=== PATIENT | female | born 1975 | race Caucasian/White ===

== ENCOUNTER 2018-05-19 03:10 | Emergency (ER) | payer MEDICAID, OTHER ==
[~2018-05-19] VITALS: Wt 75.7 kg
[~2018-05-19 03:10] MED LIST: methadone PO
[2018-05-19 03:12] VITALS: BP 148/81; PULSE 101; RESP 18
--- NOTE | 2018-05-19 06:30 | ERD ---
ER Documentation Chief Complaint Chief Complaint R ANKLE PAIN X'S 2 WEEKS HPI 42-year-old female previously healthy, presents to the emergency department, complaining of worsening of right ankle cellulitis for 2 weeks. The pain is sharp, constant, 6/10. She denies fevers, no chills, no shortness of breath, no chest pain. ROS All systems reviewed and are negative except as per history of present illness. Medications Home Meds Active Scripts Ibuprofen* (Motrin*) 400 Mg Tab, 400 MG PO Q8, #15 TAB Prov:DENICE VALERA MD 05/19/18 Sulfamethoxazole/Trimethoprim* (Bactrim Ds* Tablet) 1 Each Tablet, 1 TAB PO BID for 7 Days, #14 TAB Prov:DENICE VALERA MD 05/19/18 Cephalexin* (Keflex*) 500 Mg Capsule, 500 MG PO BID for 7 Days, CAP Prov:DENICE VALERA MD 05/19/18 Reported Medications [methadone] No Conflict Check, 40 MG PO DAILY 10/19/13 Allergies Allergies: Coded Allergies: No Known Allergy (Unverified , 10/19/13) PMhx/Soc History of Surgery: No Anesthesia Reaction: No Hx Neurological Disorder: No Hx Respiratory Disorders: No Hx Cardiac Disorders: No Hx Psychiatric Problems: No Hx Miscellaneous Medical Probl: No Hx Alcohol Use: No Hx Substance Use: Yes Hx Tobacco Use: Yes FmHx Family History: No diabetes, No coronary disease Physical Exam Vitals Vital Signs Date Temp Pulse Resp B/P (MAP) Pulse Ox O2 O2 Flow FiO2 Time Delivery Rate 05/19/18 98.0 101 18 148/81 97 03:12 (103) Physical Exam Const: No acute distress Head: Atraumatic Eyes: Normal Conjunctiva ENT: Normal External Ears, Nose and Mouth. Neck: Full range of motion. No meningismus. Resp: Clear to auscultation bilaterally Cardio: Regular rate and rhythm, no murmurs Abd: Soft, non tender, non distended. Normal bowel sounds Skin: No petechiae or rashes Back: No midline or flank tenderness Ext: Bilateral 2+ ankle edema, right ankle with a well demarcated area of erythema warmth and tenderness to palpation, no fluctuance. Neur: Awake and alert Psych: Normal Mood and Affect Procedures/MDM Vital signs stable, differential diagnosis include but not limited to: DVT, superficial thrombosis, cellulitis, erysipelas, shingles, abscess. Low suspicion for acute systemic infectious process. Physical examination and clinical presentation consistent most likely with cellulitis of the left foot without evidence of abscess formation. During the ED course the patient remained stable, no new complaints. Results and clinical impression discussed with the patient who agrees with management. The patient is stable to be treated outpatient and will be discharged home with a Rx for antibiotics, anti-inflammatories, some side effects of prescribed medications (headache, rash, nausea, vomiting, diarrhea, drowsiness, habituation, bleeding, hypertension, interactions with other medications) were reviewed. The patient was instructed to follow up with the primary care provider in the next 48h. If symptoms persist, worsen or new symptoms develop, then patient should return to the ED immediately. Instructions explained and given directly by me to the patient and relatives with acknowledgment and demonstrated understanding. Disclaimer: Inadvertent spelling and grammatical errors are likely due to EHR/dictation software use and do not reflect on the overall quality of patient care. Also, please note that the electronic time recorded on this note does not necessarily reflect the actual time of the patient encounter. Departure Diagnosis: Primary Impression: Cellulitis of foot, left Condition: Stable Additional Instructions: Thank you very much for allowing us to participate in your care. Your health and safety is our top priority at [facility]. Call your primary care doctor TOMORROW for an appointment during the next 2-4 days and bring all the information and medications prescribed. Have prescriptions filled and follow precisely the directions on the label. If the symptoms get worse and your provider is unavailable, return to the Emergency Department immediately. DENICE VALERA MD May 19, 2018 06:30
[2018-05-19] MEDS ORDERED: SULF1TAB31 PO (06:44)
[2018-05-19] MEDS ORDERED: IBUP-1561 PO (06:44)
[2018-05-19] MEDS ORDERED: CEPH-443 PO (06:44)
== END 2018-05-19 07:05 | disposition home or self-care (01) ==
LOC: FTE 03:10
DX: L03.115 Cellulitis of right lower limb (principal); Z87.891 Personal history of nicotine dependence
CPT/HCPCS: 99283

== ENCOUNTER 2018-08-31 05:42 | Observation (INO) | payer OTHER ==
[~2018-08-31] VITALS: Ht 172.7 cm; Wt 74.2 kg
[~2018-08-31 05:42] MED LIST changes: +CEPH-443 PO; +IBUP-1561 PO; +SULF1TAB31 PO
[2018-08-31] MEDS ORDERED: SOD CHLORIDE 0.9% 1,000 ML IV STA (07:41)
[2018-08-31] MEDS ORDERED: CLINDAMYCIN 900 MG/D5W (PMX) 50 ML IVPB SCH (08:00)
[2018-08-31] MEDS ORDERED: IBUPROFEN 600 MG TAB PO ONE (08:00)
--- NOTE | 2018-08-31 08:01 | ERD ---
ER Documentation Chief Complaint Chief Complaint right lower leg swelling/redness x 2 weeks, finished atb, wound with draina HPI This is a 43-year-old woman with continued redness, swelling to the right lower extremity and an ulcer and purulent discharge of the right lateral ankle. She was diagnosed with cellulitis of the foot and ankle over a month ago and was treated for about 3 days with IV antibiotics at [facility] for some reason she signed out AGAINST MEDICAL ADVICE but was placed on cephalexin times about 2 weeks. She states she used her antibiotics until complete, last dose of Keflex was 3 weeks ago Keflex her. Patient states since redness and swelling has increased in size and she has had worsening purulent discharge from the right lateral ankle. She has had tactile fevers and chills recently at home as well. She denies chest pain or shortness of breath, no URI symptoms, no abdominal pain, no vomiting or diarrhea, no headache or blurry vision ROS All systems reviewed and are negative except as per history of present illness. Medications Home Meds Active Scripts Ibuprofen* (Motrin*) 400 Mg Tab, 400 MG PO Q8, #15 TAB Prov:DENICE VALERA MD 05/19/18 Sulfamethoxazole/Trimethoprim* (Bactrim Ds* Tablet) 1 Each Tablet, 1 TAB PO BID for 7 Days, #14 TAB Prov:DENICE VALERA MD 05/19/18 Cephalexin* (Keflex*) 500 Mg Capsule, 500 MG PO BID for 7 Days, CAP Prov:DENICE VALERA MD 05/19/18 Reported Medications [methadone] No Conflict Check, 40 MG PO DAILY 10/19/13 Allergies Allergies: Coded Allergies: No Known Allergy (Unverified , 10/19/13) PMhx/Soc History of Surgery: No Anesthesia Reaction: No Hx Neurological Disorder: No Hx Respiratory Disorders: No Hx Cardiac Disorders: No Hx Psychiatric Problems: No Hx Miscellaneous Medical Probl: No Hx Alcohol Use: No Hx Substance Use: Yes (heroin) Hx Tobacco Use: Yes Smoking Status: Current every day smoker FmHx Family History: No diabetes Physical Exam Vitals Vital Signs Date Temp Pulse Resp B/P (MAP) Pulse Ox O2 O2 Flow FiO2 Time Delivery Rate 08/31/18 97.3 89 18 128/65 99 05:47 (86) Physical Exam Const: No acute distress, well-developed well-nourished, afebrile Resp: Clear to auscultation bilaterally Cardio: Regular rate and rhythm, no murmurs Abd: Soft, non tender, non distended. Skin: No petechiae or rashes. Large zone of skin induration and erythema over the right lower extremity mostly the foot ankle and lower leg with superficial draining ulcer to the right lateral ankle. Ext: No cyanosis, 1+ pitting edema to the right lower extremity and erythematous indurated skin over the entire right lower extremity with a superficial draining ulcer to the right lateral ankle Neur: Awake and alert x3, no focal deficits or facial asymmetry Psych: Normal Mood and Affect Results 24 hrs Current Medications Medications Dose Sig/Bret Start Time Status Last (Trade) Ordered Route PRN Stop Time Admin Dose Reason Admin Sodium 1,000 ml @ Q1H STAT 08/31/18 Chloride 1,000 mls/hr IV 07:41 08/31/18 08:40 Ibuprofen 600 mg ONCE ONCE 08/31/18 (Motrin) PO 08:00 08/31/18 08:01 Clindamycin 50 ml @ 50 ONCE IVPB 08/31/18 HCl/ mls/hr 08:00 Dextrose 08/31/18 08:59 Procedures/MDM IV line was established patient was placed on buhr dresser rhythm strip revealed a sinus rhythm at about 80 bpm with upright P and T waves. Patient was afebrile I administered 1 L normal saline IV, clindamycin 900 mg IV, ibuprofen 600 mg p.o. Right lower extremity Doppler ultrasound was negative for deep vein thrombosis. CBC and electrolytes are unremarkable, liver function tests were unremarkable. Patient failed outpatient oral antibiotics and will be admitted for IV antibiotic therapy Departure Diagnosis: Primary Impression: Cellulitis of right lower extremity Additional Impression: Ankle ulcer Laterality: right Non-pressure ulcer stage: unspecified non-pressure ulcer stage Qualified Codes: L97.319 - Non-pressure chronic ulcer of right ankle with unspecified severity Condition: LAYTON Hassan MD Aug 31, 2018 08:01
[2018-08-31] MEDS ORDERED: VANCOMYCIN IV PER PHARMACY XX SCH (10:00)
[2018-08-31] MEDS ORDERED: VANCOMYCIN HCL 1.25 GM in SOD CHLORIDE 0.9% 250 ML IVPB SCH (11:00)
[2018-08-31] MEDS: CEFTRIAXONE 1 GM/50 ML (PMX) 50 ML IVPB SCH (11:03)
--- NOTE | 2018-08-31 12:12 | HP ---
DATE OF ADMISSION: 08/31/2018 CHIEF COMPLAINT: Right leg calf swelling and redness. HISTORY OF PRESENT ILLNESS: A 43-year-old female with long history of IV drug abuse, skin popping, a nd "muffling", presented to emergency room with complaint of right leg swelling and redness. The pat courtney was at [facility] about 1 month prior to admission for similar complaints. At t hat time, she received IV antibiotics and signed out against medical advice. The patient reports fer t [place] treated the infection. However, patient continues to skin pop and inject needles into her r ight lower extremity. The last use was the night prior to admission. The patient has history of IV drug abuse for more than 15 years. She denies any fevers or chills. No abdominal pain, nausea or vo miting. No chest pain or shortness of breath. Initial evaluation revealed right lower extremity lesions on the lateral ankle and medial thigh with erythema extending all the way to the thigh area. White blood cell count was normal. The patient is also on methadone. PAST MEDICAL HISTORY: History of IV drug abuse for 15 years. PAST SURGICAL HISTORY: NONE. PHYSICAL EXAMINATION: GENERAL: Well-developed, well-nourished female who is in no apparent distress. VITAL SIGNS: Stable. She is afebrile. HEENT: Extraocular muscles intact. Pupils equal, reactive to light bilaterally. Sclerae are anicte hayes. Oropharynx is clear and moist. NECK: Supple, no JVD, no carotid bruits. LUNGS: Clear to auscultation bilaterally. CARDIAC: Regular rate and rhythm. No murmurs, rubs or gallops. ABDOMEN: Soft, nontender, nondistended, normoactive bowel sounds. EXTREMITIES: Right lower extremity with lesions on the lateral and medial ankle, extensive erythema that extends to the thigh area. NEUROLOGICAL: Nonfocal. ASSESSMENT: 1. A 42-year-old female with recurrent right lower extremity cellulitis with lymphangitic spread pro ximally. There is no evidence of abscess. 2. History of IV drug abuse, and skin popping, and "muffling". 3. Noncompliant with medical therapy in the past. PLAN: 1. Place in med/surg observation. IV vancomycin per pharmacy. 2. IV Rocephin 1 gram daily. 3. I had a long conversation with the patient regarding sobriety. I educated her about the complica tions of persistent or IV drug abuse and the risk for necrotizing fasciitis, and endocarditis. Dictated By: CHAVA SHARMA/SHRUTHI Conf#: [id number] DID#: [id number] CC: LAYTON MCCONNELL MD;*EndCC*
[2018-08-31 17:01] VITALS: Ht 172.7 cm; Wt 74.2 kg
[2018-08-31 17:56] VITALS: BP 116/63; PULSE 85; RESP 16
[2018-08-31] MEDS ORDERED: PENDING SANTYL ORDER FOR WOUND CARE XX PRN (18:30)
[2018-08-31 20:36] VITALS: BP 118/67; PULSE 80; RESP 20
[2018-08-31] MEDS ORDERED: VANCOMYCIN 1 GM 250 ML IVPB SCH (23:00)
[2018-09-01] MEDS ORDERED: ONDANSETRON 4 MG INJ IV PRN (01:30)
[2018-09-01] MEDS ORDERED: IBUPROFEN 600 MG TAB PO PRN (01:30)
[2018-09-01] MEDS ORDERED: ACETAMINOPHEN 325 MG TAB PO PRN (01:30)
[2018-09-01] MEDS ORDERED: LORAZEPAM 2 MG INJ IV PRN (01:30)
[2018-09-01 02:23] VITALS: BP 108/58; PULSE 88; RESP 18
[2018-09-01 08:00] VITALS: BP 110/65; PULSE 87; RESP 18
[2018-09-01] MEDS ORDERED: SULF1TAB31 PO (09:30)
--- NOTE | 2018-09-01 09:31 | PDOCDIS ---
Discharge Instructions CONDITION [id number] Patient Condition: Hhedd5g Good HOME CARE INSTRUCTIONS: [id number] Diet Instructions: Wescm9g Regular ACTIVITY: [id number] Activity Restrictions: Kblju0g No Restrictions FOLLOW UP/APPOINTMENTS Follow-up Plan pcp 1 week OTHER ORDERS: Other Orders: avoid skin popping and drug use completely CHAVA MALAVE MD Sep 01, 2018 09:31
[2018-09-01] MEDS: CEFTRIAXONE 1 GM/50 ML (PMX) 50 ML IVPB SCH (09:39)
--- NOTE | 2018-09-02 01:52 | DS ---
DATE OF ADMISSION: 08/31/2018 DATE OF DISCHARGE: 09/01/2018 DIAGNOSES: 1. Extensive right lower extremity cellulitis. 2. History of IV drug abuse, skin popping and muffling. 3. Noncompliant with medical therapy in the past. HOSPITAL COURSE: A 43-year-old female with long history of IV drug abuse and skin popping, presented to emergency room with complaint of recurrent right lower extremity swelling and redness. The patie nt was at [facility] about 1 month prior to admission and signed out against medical advice. The patient uses her lower extremity skin and muscles for skin popping and what she called muffling. There was evidence of diffuse right lower extremity cellulitis. The wound was noted on the lateral and medial ankle with no evidence of abscess formation. White blood cell count was normal at 6.8. T he patient was afebrile. She received 2 days of IV vancomycin and Rocephin. Cellulitis was signific antly improved. I had a long discussion with her regarding sobriety and asked her to stop skin poppi ng and IV drug abuse. The patient was warned against possible necrotizing fasciitis. She is in a st able condition for discharge. I prescribed 10 days of Bactrim double strength twice daily. The hoda ent will follow up with her PCP in 1 week. Dictated By: CHAVA SHARMA/SHRUTHI Conf#: [id number] DID#: [id number]
== END 2018-09-01 11:15 | disposition home or self-care (01) ==
LOC: E/R 05:42 → PP2 09:19
PROVIDERS: ADMIT Internal Medicine; ATTEND Internal Medicine
DX: L03.115 Cellulitis of right lower limb (principal); F11.10 Opioid abuse, uncomplicated; F17.200 Nicotine dependence, unspecified, uncomplicated; Z91.19 Patient's noncompliance with other medical treatment and regimen
CPT/HCPCS: 36415; 80048; 81001; 81025; 85025; 87040; 87086; 93971; 96374; J0696; J3370; J7030; J7050; Z7500; Z7502; Z7610; G0378